=== PATIENT | male | born 1995 | race Caucasian/White ===

== ENCOUNTER → 2020-11-06 | Outpatient (CLI) | payer OTHER ==
--- NOTE | 2020-11-07 14:33 | MR ---
EXAMINATION TYPE: MR femur/thigh LT wo con DATE OF EXAM: 11/06/2020 COMPARISON: None HISTORY: Left thigh rupture of muscle Standard multiplanar, multisequence MRI departmental protocol Multiplanar, multisequence images of the left thigh were acquired. Diffusion weighted imaging was per formed. FINDINGS: Muscular structures appear to be symmetric without evidence for edema. There is no evidence for intra muscular tear. No evidence for hematoma. No muscular rupture. No masses are identified of the soft ti ssues. Osseous structures demonstrate normal bone marrow signal without evidence for fracture or intr aosseous lesion. IMPRESSION: Unremarkable MRI of the left thigh.
== END | disposition home or self-care (01) ==
LOC: RADMRIMAIN 10:34
PROVIDERS: ATTEND Internal Medicine
DX: M62.152 Other rupture of muscle (nontraumatic), left thigh (principal)

== ENCOUNTER → 2020-12-18 | Outpatient (CLI) | payer OTHER ==
--- NOTE | 2020-12-18 11:50 | XR ---
EXAMINATION TYPE: XR lumbar spine 2 or 3V DATE OF EXAM: 12/18/2020 CLINICAL HISTORY: Back pain for one year. TECHNIQUE: Frontal and lateral images of the lumbar spine are obtained. COMPARISON: None FINDINGS: There are 5 lumbar type vertebral bodies identified. The lumbar spine shows satisfactory alignment without evidence of acute fracture or dislocation. Mild to moderate disc space L5-S1 level of the right vertebral body heights and disk space heights are within normal limits. The overlying soft tissue appears unremarkable. IMPRESSION: As above.
--- NOTE | 2020-12-18 11:54 | XR ---
EXAMINATION TYPE: XR thoracic spine complete DATE OF EXAM: 12/18/2020 CLINICAL HISTORY: Mid back pain. TECHNIQUE: Frontal, lateral, and swimmer's view of thoracic spine are obtained. COMPARISON: None. FINDINGS: Thoracic spine show satisfactory alignment without evidence of acute fracture or dislocatio n. Vertebral body heights and disc space heights are preserved. Visualized ribs and pedicles are int act bilaterally.. IMPRESSION: Unremarkable study.
== END ==
LOC: RADXRMAIN 10:58
PROVIDERS: ATTEND Internal Medicine
DX: M54.9 Dorsalgia, unspecified (principal)
CPT/HCPCS: 72072; 72100

== ENCOUNTER → 2021-01-18 | Outpatient (CLI) | payer OTHER ==
--- NOTE | 2021-01-19 05:37 | MR ---
EXAMINATION TYPE: MR lumbar spine wo con DATE OF EXAM: 01/18/2021 COMPARISON: None HISTORY: LBP, LLE radiculopathy x 1 year. Multiplanar multiecho imaging of the lumbar spine was performed with no contrast. There is large posterior L5-S1 disc herniation posteriorly on the left side. There is significant imp ingement on the lateral recess and lumbar nerve root. There is narrowing of the left side L5-S1 neura l foramen. There is no lumbar paraspinal mass. Sacroiliac joints are intact. There is no compression fracture. T here is slight decreased signal in the L5-S1 disc. The other discs appear normal. There is no evidenc e of focal bone destruction. IMPRESSION: Large posterior L5-S1 disc herniation on the left side which is probably clinically significant in th is patient with left side pain. Disc herniation measures 16 x 10 mm on the sagittal images.
== END | disposition home or self-care (01) ==
LOC: RADMRIMAIN 16:11
PROVIDERS: ATTEND Psychiatry & Neurology Neurology
DX: M51.17 Intervertebral disc disorders with radiculopathy, lumbosacral region (principal)
CPT/HCPCS: 72148

== ENCOUNTER → 2021-03-19 | Outpatient (CLI) | payer OTHER ==
--- NOTE | 2021-03-19 13:03 | XR ---
EXAMINATION TYPE: XR chest 2V DATE OF EXAM: 03/19/2021 COMPARISON: NONE HISTORY: Presurgical study. TECHNIQUE: Frontal and lateral views of the chest are obtained. FINDINGS: There is no focal air space opacity, pleural effusion, or pneumothorax seen. The cardiac silhouette size is within normal limits. The osseous structures are intact. IMPRESSION: No acute cardiopulmonary process.
[2021-03-19 15:08] LABS: Appearance,Urine Clear (Clear); Bilirubin,Urine Negative (Negative); Blood,Urine Negative (Negative); Color,Urine Colorless; Glucose,Urine (UA) Negative (Negative); HCT 48.4 % (39.0-53.0); HGB 16.1 gm/dL (13.0-17.5); Ketones,Urine Negative (Negative); Leukocyte Esterase,Urine Negative (Negative); MCH 30.7 pg (25.0-35.0); MCHC 33.3 g/dL (31.0-37.0); MCV 92.3 fL (80.0-100.0); Mean Platelet Volume 7.2; Nitrite,Urine Negative (Negative); Platelet Count 342 k/uL (150-450); Protein,Urine Negative (Negative); RBC 5.24 m/uL (4.30-5.90); RDW 12.8 % (11.5-15.5); Urobilinogen,Urine <0.2 mg/dL (<2.0); WBC 12.7 k/uL (3.8-10.6)
[2021-03-19 15:19] LABS: African American GFR (CKD) >90 (>60 ml/min/1.73 sqM); Anion Gap 8 mmol/L; Blood Urea Nitrogen 15 mg/dL (9-20); Calcium 10.3 mg/dL (8.4-10.2); Carbon Dioxide 27 mmol/L (22-30); Chloride 103 mmol/L (98-107); Glucose 112 mg/dL (74-99); Non-African American GFR(CKD) >90 (>60 ml/min/1.73 sqM); Potassium 4.8 mmol/L (3.5-5.1); Sodium 138 mmol/L (137-145)
[2021-03-19 15:22] LABS: INR 0.9 (<1.2); Partial Thromboplastin Time 24.4 sec (22.0-30.0); Prothrombin Time 9.9 sec (9.0-12.0)
== END | disposition home or self-care (01) ==
LOC: RADXRMAIN 12:42
PROVIDERS: ATTEND Orthopaedic Surgery Orthopaedic Surgery of the Spine
DX: Z01.818 Encounter for other preprocedural examination (principal); M51.27 Other intervertebral disc displacement, lumbosacral region
CPT/HCPCS: 71046; 80048; 81003; 85027; 85610; 85730; 93005

== ENCOUNTER 2021-04-02 06:22 | Day surgery (SDC) | payer OTHER ==
[2021-03-29 14:58] VITALS: BMI 30.5
[2021-04-02] MEDS ORDERED: ONDANSETRON 4 MG/2 ML VIAL ONE (06:54)
[2021-04-02] MEDS ORDERED: LIDOCAINE 1% (10MG/ML) FOR IV START INTRADERMA ONE (07:00)
[2021-04-02] MEDS ORDERED: LACTATED RINGERS 1,000 ML IV ONE (07:01)
[2021-04-02 07:02] VITALS: TEMP 97.7
[2021-04-02 07:04] LABS: Glucose,Whole Blood 103 mg/dL (75-99)
[2021-04-02] MEDS: ONDANSETRON 4 MG/2 ML VIAL IVP ONE ×2 (07:10→10:05)
[2021-04-02] MEDS ORDERED: KETAMINE 10 MG/ML 20 ML VIAL ONE (07:25)
[2021-04-02] MEDS ORDERED: ROCURONIUM 10 MG/ML (5 ML VIAL) IV ONE (07:25)
[2021-04-02] MEDS ORDERED: SUCCINYLCHOLINE CHLORIDE 100 MG/5 ML SYR IV ONE (07:25)
[2021-04-02] MEDS ORDERED: fentaNYL (PF) 50 MCG/ML 2 ML AMP ONE (07:25)
[2021-04-02] MEDS ORDERED: MIDAZOLAM 2 MG/2 ML VIAL ONE (07:25)
[2021-04-02] MEDS ORDERED: PROPOFOL 10 MG/ML 20 ML VIAL IV ONE (07:25)
[2021-04-02] MEDS ORDERED: LIDOCAINE 1% INJ 10MG/ML (20 ML MDV) ONE (07:25)
[2021-04-02] MEDS ORDERED: LIDOCAINE 0.5%-EPI 1:200,000 50 ML VIAL SQ ONE (07:30)
[2021-04-02] MEDS ORDERED: THROMBIN (BOVINE) 5,000 UNIT VIAL TOPICAL ONE (07:30)
[2021-04-02] MEDS ORDERED: methylPREDNISolone ACETATE 40 MG/ML 1 ML VIAL MISCELLANE ONE (07:30)
[2021-04-02] MEDS ORDERED: GELATIN SPONGE,ABSORB (LARGE) 1 EACH SPONGE TOPICAL ONE (07:30)
[2021-04-02] MEDS ORDERED: ceFAZolin 1,000 MG in SODIUM CHLORIDE 0.9% 1,000 ML IRRIGATION ONE (08:03)
[2021-04-02] MEDS ORDERED: HYDROcodone/APAP 5-325MG 1 EACH TAB PO PRN (09:11)
[2021-04-02] MEDS ORDERED: HYDROmorphone 0.5 MG/0.5 ML SYRINGE IVP PRN (09:11)
[2021-04-02] MEDS ORDERED: HYDROmorphone 1 MG/ML 1 ML SYRINGE IVP PRN (09:11)
[2021-04-02] MEDS ORDERED: BENZOCAINE/MENTHOL LOZENG 1 EACH LOZENGE MUCOUS MEM PRN (09:11)
[2021-04-02] MEDS ORDERED: KETOROLAC 15 MG/ML 1 ML VIAL IVP PRN (09:12)
[2021-04-02] MEDS ORDERED: ONDANSETRON 4 MG/2 ML VIAL IVP PRN (09:12)
[2021-04-02] MEDS ORDERED: CYCLOBENZAPRINE 10 MG TAB PO PRN (09:12)
[2021-04-02] MEDS ORDERED: IBUPROFEN 600 MG TAB PO PRN (09:12)
[2021-04-02] MEDS ORDERED: SODIUM CHLORIDE 0.9% 1,000 ML IV SCH (09:15)
--- NOTE | 2021-04-02 09:18 | P.OP ---
Date of Procedure: 04/02/21 Preoperative Diagnosis: Herniated nucleus pulposis L5-S1, left lower extremity radiculopathy, left lower extremity weakness, degenerative disc disease Postoperative Diagnosis: Same Anesthesia: GETA Pathology: none sent Condition: stable Disposition: PACU Description of Procedure: BRIEF OPERATIVE NOTE Preoperative Diagnosis:Herniated nucleus pulposis L5-S1, left lower extremity radiculopathy, left lower extremity weakness, degenerative disc disease Postoperative Diagnosis:Herniated nucleus pulposis L5-S1, left lower extremity radiculopathy, left lower extremity weakness, degenerative disc disease Procedure: Laminectomy and decompression L5-S1 Discectomy for decompression L5-S1 Use of intraoperative fluoroscopy Surgeon: Dr. Lord Bonderizer Operator: Vargas ORONA Anesthesia: General anesthesia per Dr. Rubio Estimated blood loss: Less than 20 mL Complications: None apparent Components implanted: None Disposition: To recovery room in good stable condition. OPERATIVE INDICATIONS The patient has been having issues in their lower back and lower extremities. He had acute symptoms after trying to move a futon and has been having severe pain at his back and particularly at his left lower extremity over an S1 distribution. He was having some weakness at his lower extremity and has having significant debility due to this. He is found have a large disc herniation with extruded fragment L5-S1 with correlated well with his low back and lower extremity symptoms. The patient has been through conservative treatment. He acosta s exhausted conservative Management. We discussed various treatment options including surgery, and the patient wishes to proceed with surgery We discussed the risk, patient's alternatives and benefits of surgery including but not limited to, risk of bleeding risk of infection, risk of need for further surgery, risk of decreased, loss of motion, loss of function, nerve damage, paralysis, heart attack, blindness and . OPERATIVE SUMMARY After discussing all the risks, patient alternatives and benefits at length, the patient elected to proceed with surgical intervention, signed informed consent, and presented for their procedure. The patient was seen and examined in the preoperative holding area and the surgical site was marked. The patient was given antibiotics and brought to the operating room. The patient was sedated and intubated by anesthesia in standard fashion. The patient was positioned on to the operating room table in a prone position on the appropriate frame which was well-padded and well molded. We were careful to pad any bony prominences and pressure points. We were careful to maintain the patient's cervical spine and good neutral alignment and position throughout. The patient was prepped and draped in a normal standard fashion. An appropriate timeout and keystone protocol performed. We were able to proceed with the surgery. Fluoroscopy was utilized to establish the appropriate level. The local wound area was infiltrated with local anesthetic. An incision was made at the midline longitudinally over the appropriate levels. Dissection was taken down subcutaneously to the level of the fascia which was split midline. Dissection was taken over the lamina. Intraoperative fluoroscopy was taken which showed a marker at the appropriate level at L5-S1. With the appropriate level positively confirmed, we were able to proceed with laminectomy. The wound was copiously irrigated and suctioned dry as had been done periodically throughout the case. I performed a laminectomy at L5-S1 on the left with a combination of curettes and a high-speed bur and Kerrison rongeurs. A small medial facetectomy was performed again further access. A partial foraminotomy was also performed. Portions of the ligamentum flavum were taken down to expose the dura and traversing nerve root. I was able to mobilize the traversing nerve root and gain access to the disc space. Note was made of obvious compression from the disc. Protecting the soft tissue structures, a small annulotomy was established. There is large extruded disc fragments noted. I was able to perform discectomy and remove any extruded disc fragments and any loose fragments from within the disc itself. There is some disc desiccation noted. I tried to preserve the disc annulus that appeared stable. The discectomy gave excellent decompression of the nerve and the nerve was freely mobile. There were no further extruded fragments noted. There is no evidence of dural tear or leak. Good hemostasis maintained. The wound was copiously irrigated and suctioned dry. Good decompression and discectomy was noted. We were able to proceed with closure. The fascia was closed for a watertight closure. The subcuticular tissue was closed with absorbable suture. The wound was cleaned and dried and dressed with the appropriate dressing. The drapes were broken down. The patient was gently rolled back onto their hospital bed being careful to maintain their cervical spine and good neutral alignment and position. They were woken up by anesthesia, extubated, and brought to the recovery room in good stable condition. The patient will be admitted to the hospital for observation and for appropriate postoperative care, medical management and monitoring. We will continue to follow them closely about the postoperative course.
[2021-04-02] MEDS: HYDROmorphone 0.5 MG/0.5 ML SYRINGE IVP ONE ×4 (09:37→10:12)
[2021-04-02 10:35] VITALS: RESP 20
[2021-04-02 11:02] VITALS: BP 136/70; PULSE 63
--- NOTE | 2021-04-02 20:40 | XR ---
EXAMINATION TYPE: XR lumbar spine 2 or 3V, FL guidance operating room DATE OF EXAM: 04/02/2021 Comparison: 12/18/2020 Clinical History: 25-year-old male [employer] Findings: Intraoperative fluoroscopy during L5-S1 laminectomy and discectomy. FLUOROSCOPY Fluoroscopy time of 1 seconds was used during lumbar L5-S1 laminectomy and discectomy. 1 image/s doc ument/s the procedure. Impression: Intraoperative fluoroscopy as above.
== END 2021-04-02 11:26 | disposition home or self-care (01) ==
LOC: OR 06:22 → 5NMEDONC 09:15 → OR 11:26
PROVIDERS: ATTEND Orthopaedic Surgery Orthopaedic Surgery of the Spine
DX: M51.17 Intervertebral disc disorders with radiculopathy, lumbosacral region (principal); M54.5 Low back pain; F17.210 Nicotine dependence, cigarettes, uncomplicated; Z79.899 Other long term (current) drug therapy; K21.9 Gastro-esophageal reflux disease without esophagitis
CPT/HCPCS: 72100; 63047; J2250; J1030; J0690 ×2; J2405; J2001; J3010; J1885; J0330; J2704; J1170

== ENCOUNTER 2021-06-18 13:50 | Emergency (ER) | payer OTHER ==
[2021-06-18 14:01] VITALS: BP 143/68; PULSE 91; RESP 18; TEMP 98.1
[2021-06-18] MEDS ORDERED: IBUPROFEN 600 MG TAB PO STA (15:10)
--- NOTE | 2021-06-18 16:00 | XR ---
EXAMINATION TYPE: XR lumbar spine 2 or 3V DATE OF EXAM: 06/18/2021 CLINICAL HISTORY: pain TECHNIQUE: Three views of the lumbar spine are submitted. COMPARISON: None. FINDINGS: There are 5 lumbar type vertebral bodies identified. The lumbar spine shows satisfactory alignment w ithout evidence of acute fracture or dislocation. Vertebral body heights are within normal limits. Disc spaces are within normal limits. The overlying soft tissue appears unremarkable. IMPRESSION: No acute fracture or dislocation is seen in the lumbar spine. ICD 10 NO FRACTURE, INITIAL EVALUATION
[2021-06-18] MEDS ORDERED: ACET/COD 300 MG/30 MG STARTER PACK 6 TAB BTL PO STA (16:43)
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
== END 2021-06-18 16:59 | disposition home or self-care (01) ==
LOC: EC 13:50
DX: M54.5 Low back pain (principal); F90.9 Attention-deficit hyperactivity disorder, unspecified type
CPT/HCPCS: 72100; 99283

== ENCOUNTER → 2022-01-02 | Outpatient (CLI) | payer OTHER ==
[2022-01-02 14:15] VITALS: BP 117/77; PULSE 84; RESP 18; TEMP 98
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
== END ==
LOC: PNWHC3 12:51
PROVIDERS: ATTEND Specialist
DX: M51.26 Other intervertebral disc displacement, lumbar region (principal); M41.86 Other forms of scoliosis, lumbar region; M48.061 Spinal stenosis, lumbar region without neurogenic claudication; G95.29 Other cord compression; F17.200 Nicotine dependence, unspecified, uncomplicated
CPT/HCPCS: 99211

== ENCOUNTER → 2022-03-11 | Outpatient (CLI) | payer OTHER ==
[2022-03-11 10:57] VITALS: BP 129/71; PULSE 59; RESP 18; TEMP 97.7
--- NOTE | 2022-03-11 11:16 | P.PN ---
Subjective Progress Note Date: 03/11/22 Principal diagnosis: A 26 yr old male with a history of severe and chronic low back pain secondary to lumbar degenerative disc diseases and lumbar spondylosis with facet arthropathy presents today for evaluation s/p L TFESI L5-S1 #2. He states he experienced 70% pain relief s/p procedures. Pain level is currently at 3/10 in intensity, constant, sharp, throbbing and irritating pain in the lower aspect of his lumbar spine, mostly on the R side but some on the L. Denies radiation of pain towards the LEs. Pain is provoked by walking, bending and lifting. Pain is alleviated with heat, topicals but irritated his skin, medications (muscle relaxer), laying supine, home based guided exercise regimen, no pt as he has not been approved yet, repositioning and rest Interventional pain procedures completed include L TFESI L5-S1 x2 Patient is currently on "muscle relaxer" Patient denies any side effects of the medication(s), denies excessive drowsiness or sleepiness, denies suicidal ideation and reports that the current pain medication is helping to control the pain and improve activities of daily living. Patient denies any motor or sensory deficits. Patient denies any fever or night sweats, denies any change in the bowel movements or urination. Physical Examination: -Constitutional: Cooperative. Not in acute distress . -HEENT: Neck is supple. No lymphadenopathy. No thyromegaly. Normal thyroid size. Eyes: No ptosis , no icterus, no photophobia. ENT: No auditory deficits. Normal oropharynx. No Thrush. - Respiratory: Chest clear to auscultations bilaterally. No wheezing. No rhonchi. - Cardiovascular: Regular rate and rhythm. S1 / S2 , no S3 , no S4. - Gastrointestinal: Abdomen soft no tenderness. Bowel sounds positive in all four quadrants. No organomegaly. - Genitourinary: Deferred. - Neurologic: Cranial nerve II to XII intact. No focal neurological deficits. - Psychatric: Alert & oriented x 3. Matching mood & appropriate affect. Judgment and insight intact. - Lymphatic: No Lymphadenopathy. - Musculoskeletal: Cervical spine: Muscle bulk/ tone/ strength in the bilateral upper extremities normal Vertebral body tenderness to palpation over Facet loading test positive Thoracic spine Muscle bulk / tone/ strength in the bilateral paraspinal muscles normal Vertebral body tender to palpation over Facet loading test positive Lumbar spine: Motor bulk/ tone/ strength lower extremities , thigh and legs : 5/5 Deep tendon reflexes : Normal Knee Jerk. Normal Ankle Jerk . Vertebral body tenderness to palpation over L5 Lumbar Facet Loading Test positive Straight Leg Raise: positive at 30 degrees right side/ left side Gaenslen's Test positive Sacral spine : Severe tenderness over the Sacroiliac joint: right side / left side Range of motion: Flexion of the lumbar spine <60 degrees Range of motion: Extension of the lumbar spine <20 degrees Gaenslen's Test positive Mani's Test positive Baylee test: positive right side / left side Thigh Thrust Test Sacral Thrust Test Assessment and plan: Chronic low back pain secondary to lumbar degenerative disc disease , lumbar spondylosis with facet arthropathy without myelopathy Recommendation of LESI L5-S1. Pt has exhibited sufficient pain relief with L TFESI L5-S1 x 2 but continues to feel intractable pain that is limiting. He appears to need the series of 3 to obtain optimal pain relief. Risks, benefits of procedure discussed and pt verbalized understanding. Denies anticoagulant use or medical history of diabetes. All patient questions answered MAPS reviewed and it was appropriate. I have spent 31 minutes on patient care today. Dr Gutiérrez was available by phone for the evaluation of this patient. The time was used to review the medical records including relevant urine studies and Prescription history (MAPs), review of the available imaging, evaluation and examination of the patient, coordination of care with the medical staff and if applicable referring physicians, as well as creation of the medical record Objective - Vital Signs Vital signs: Vital Signs Temp 97.7 F 03/11/22 10:48 Pulse 59 L 03/11/22 10:48 Resp 18 03/11/22 10:48 BP 129/71 03/11/22 10:48 Pulse Ox 96 03/11/22 10:48 FiO2 Intake & Output 03/10/22 03/11/22 03/11/22 18:59 06:59 18:59 Weight 99.79 kg PQRS Measure Charge Sheet Mode of Arrival: Ambulatory - Pain Location Right Lower Back Non-Pharmacological Interventions: Exercise, Heat, Inactivity, Stretching Pharmacological Interventions: Epidural, Scheduled Medication, Topical Medication PQRS Narrative: Smoking Status Current every day smoker Blood Pressure 129/71 Pain Intensity [Right Lower 3 Back] Scale Used Numeric (1 - 10) Hx Alcohol Use (MH) No Home Medications: Ambulatory Orders Cyclobenzaprine [Flexeril] 10 mg PO HS PRN 03/29/21 Famotidine [Pepcid] 20 mg PO DAILY PRN 03/29/21 Sertraline [Zoloft] 25 mg PO DAILY 12/31/21 Vitamin D (Unknown Dose) 1 tab PO DAILY 12/31/21 Ibuprofen 200 - 400 mg PO Q8H PRN 02/06/22
== END ==
LOC: PNWHC3 10:28
PROVIDERS: ATTEND Specialist
DX: M51.36 Other intervertebral disc degeneration, lumbar region (principal); M47.816 Spondylosis without myelopathy or radiculopathy, lumbar region; G89.29 Other chronic pain; F17.200 Nicotine dependence, unspecified, uncomplicated
CPT/HCPCS: 99211

== ENCOUNTER 2022-04-04 10:53 | Day surgery (SDC) | payer OTHER ==
[2022-04-02 15:32] VITALS: BMI 30.7
[~2022-04-04 10:53] MED LIST: LACTATED RINGERS 1,000 ML IV SCH; LIDOCAINE 1% (10MG/ML) FOR IV START INTRADERMA PRN
[2022-04-04 11:21] VITALS: TEMP 97.8
[2022-04-04] MEDS ORDERED: IOPAMIDOL M200 10 ML VIAL ONE (11:29)
[2022-04-04] MEDS ORDERED: MIDAZOLAM 2 MG/2 ML VIAL ONE (11:29)
[2022-04-04] MEDS ORDERED: fentaNYL (PF) 50 MCG/ML 2 ML AMP ONE (11:29)
[2022-04-04] MEDS ORDERED: methylPREDNISolone ACETATE 80 MG/ML 1 ML VIAL ONE (11:29)
--- NOTE | 2022-04-04 11:37 | P.PCN ---
Date of Procedure: 04/04/22 Procedure(s) Performed: PREOPERATIVE DIAGNOSIS: 1- Lumbar Degenerative Disc Diseases 2-Lumbar spondylosis with Facet arthropathy without myelopathy POSTOPERATIVE DIAGNOSIS: Same as preop diagnosis. PROCEDURE 1. Lumbar epidural steroid injection under fluoroscopic guidance at the L5-S1 level. (Fluoroscopy imaging was available in radiology department) 2. Lumbar epidurogram. ANESTHESIA: Local with 1% lidocaine 3 ml and , moderate sedation with intravenous Versed 2 mg ,and fentanyle 100 Mcg EBL: Minimal PROCEDURE INDICATION: The patient with low back pain and radiculitis symptoms unresponsive to conservative treatment. Fluoroscopy was used to optimize visuali zation of the needle placement and to maximize safety. PROCEDURE DESCRIPTION / TECHNIQUE: The patient was seen and identified in the preoperative area. Risks, benefits, complications including but not limited to infections ,bleeding ,allergic reaction to the medications ,nerve damage and not complete pain releife , and alternatives were discussed with the patient. The patient agreed to proceed with the procedure and signed the consent. IV was started, and vital signs were stable. Patient was taken to the OR and time out was completed. The patient was placed in the prone position on procedure table and a pillow was placed under the abdomen to reduce lumbar lordosis. The lumbosacral area was prepped and draped in the usual sterile fashion.ere closely monitored during the procedure. Conscious sedation was used during the procedure to decrease patients anxiety. Vital signs was monitered during the entire procedure. Using anterior-posterior fluoroscopy, the L5-S1 interlaminar space was identified and the skin over this site was marked and then infiltrated with 1% lidocaine subcutaneously. Subsequently, a 20-gauge Tuohy epidural needle was inserted and advanced toward the epidural space using the ``Loss of resistance technique and guided by AP and lateral fluoroscopy. The correct needle position in the epidural space was verified with the injection of 2 mL of the water mell uble contrast dye Isovue [id number] contrast and observing an excellent epidurogram with the epidural spread of the dye, after negative aspiration for blood and CSF and in the absence of paresthesias. Again after negative aspiration, a 6 ml mixture containing 80 mg of Depo-medrol , and 2 ml of preservative free Normal Saline, and 2 ml of preservative free lidocaine 1% solution was injected and a washout of epidurogram was seen. Needle was withdrawn intact, skin was cleansed, and bandages were applied. COMPLICATIONS: None DISPOSITION / PLANS: The patient was placed in a supine position and transferred to the recovery area in a stable condition for observation. There was no evidence of lower extremity motor or sensory deficit after the procedure. Patient was discharged from the recovery room after meeting discharge criteria. Home discharge instructions were given to the patient by the staff. The patient was reexamined prior to discharge. The patient will schedule a follow up in the clinic in 2-4 weeks.
[2022-04-04] MEDS ORDERED: IV FLUID CONTINUATION 1,000 ML IV ONE (11:42)
[2022-04-04 11:49] VITALS: PULSE 55; RESP 15
[2022-04-04 12:14] VITALS: BP 122/74
--- NOTE | 2022-04-05 22:11 | FL ---
EXAMINATION TYPE: FL guided pain mgmt statistic DATE OF EXAM: 04/04/2022 CLINICAL HISTORY: Lumbar epidural injection TECHNIQUE: Fluoroscopic guided procedure. COMPARISON: X-ray dated 06/18/2021 FINDINGS: Fluoroscopic guidance was provided during the procedure. A total of 3 seconds of fluorosco pic time was utilized during the procedure and 1 spot image was acquired. IMPRESSION: As Above.
== END 2022-04-04 12:34 | disposition home or self-care (01) ==
LOC: ORPAIN 10:53
PROVIDERS: ATTEND Specialist
DX: M51.16 Intervertebral disc disorders with radiculopathy, lumbar region (principal); M47.26 Other spondylosis with radiculopathy, lumbar region
CPT/HCPCS: 62323; J2250; J1040; J3010; Q9966

== ENCOUNTER → 2022-04-25 | Outpatient (CLI) | payer OTHER ==
--- NOTE | 2022-04-25 12:37 | P.PAINPG ---
PQRS Measure Charge Sheet Comment: A 27 yr old male with a history of severe and chronic low back pain secondary to lumbar degenerative disc diseases and lumbar spondylosis with facet arthropathy presents today for evaluation. He states he experienced 80% pain relief x 3-4 weeks status post procedure. Pain level is currently at 1/10 in intensity, constant, pressure in the R lower aspect in the lumbar spine with shooting towards the R glute. Pain is provoked by sitting for periods of 30 min or more. Pain is alleviated with medications, home stretching regimen, repositioning and rest. Interventional pain procedures completed include LESI L5-S1 x 1 Patient is currently on OTC meds Patient denies any side effects of the medication(s), denies excessive drowsiness or sleepiness, denies suicidal ideation and reports that the current pain medication is helping to control the pain and improve activities of daily living. Patient denies any motor or sensory deficits. Patient denies any fever or night sweats, denies any change in the bowel movements or urination. Physical Examination: -Constitutional: Cooperative. Not in acute distress . - Neurologic: Cranial nerve II to XII intact. No focal neurological deficits. - Psychatric: Alert & oriented x 3. Matching mood & appropriate affect. Judgment and insight intact. - Musculoskeletal: Cervical spine: Muscle bulk/ tone/ strength in the bilateral upper extremities normal Vertebral body tenderness to palpation over Spurling test positive Distraction test positive Facet loading test positive Thoracic spine Muscle bulk / tone/ strength in the bilateral paraspinal muscles normal Vertebral body tender to palpation over Facet loading test positive Lumbar spine: Motor bulk/ tone/ strength lower extremities , thigh and legs : 5/5 Deep tendon reflexes : Normal Knee Jerk. Normal Ankle Jerk . Vertebral body tenderness to palpation over Lumbar Facet Loading Test positive Straight Leg Raise: positive at 30 degrees right side/ left side Gaenslen's Test positive Sacral spine : Severe tenderness over the Sacroiliac joint: right side / left side Range of motion: Flexion of the lumbar spine <60 degrees Range of motion: Extension of the lumbar spine <20 degrees Gaenslen's Test positive on R Baylee test: positive right side / left side +R Thigh Thrust Test Sacral Thrust Test - R side Assessment and plan: Chronic low back pain secondary to lumbar degenerative disc disease , R Sacroiliitis Recommendation of R SI joint injection. May need a series, up to every 3 mo, for optimal pain relief. Risks, benefits of procedure discussed and pt verbalized understanding. Denies anticoagulant use or medical history of diabe estelle. All patient questions answered MAPS reviewed and it was appropriate. I have spent less than 30 minutes on patient care today. Dr Gutiérrez was available by phone for the evaluation of this patient. The time was used to review the medical records including relevant urine studies and Prescription history (MAPs), review of the available imaging, evaluation and examination of the patient, coordination of care with the medical staff and if applicable referring physicians, as well as creation of the medical record PQRS Narrative: Smoking Status Current every day smoker Hx Alcohol Use (MH) No Home Medications: Ambulatory Orders Cyclobenzaprine [Flexeril] 10 mg PO HS PRN 03/29/21 Vitamin D (Unknown Dose) 1 tab PO DAILY 12/31/21 Ibuprofen 200 - 400 mg PO Q8H PRN 02/06/22 Sertraline [Zoloft] 50 mg PO DAILY 04/02/22 Controlled Substance Measures - Controlled Substance Measures Is patient prescribed a controlled substance at discharge?: No
[2022-04-25 12:46] VITALS: BP 145/75; PULSE 74; RESP 16; TEMP 98.1
== END ==
LOC: PNWHC3 12:17
PROVIDERS: ATTEND Specialist
DX: M51.36 Other intervertebral disc degeneration, lumbar region (principal); M47.816 Spondylosis without myelopathy or radiculopathy, lumbar region; G89.29 Other chronic pain; M46.1 Sacroiliitis, not elsewhere classified; F17.200 Nicotine dependence, unspecified, uncomplicated
CPT/HCPCS: 99211

== ENCOUNTER 2022-06-06 12:06 | Day surgery (SDC) | payer OTHER ==
[2022-06-06 12:38] VITALS: TEMP 98
[2022-06-06] MEDS ORDERED: TRIAMCINOLONE ACETONIDE 40 MG/ML 1 ML VIAL ONE (12:53)
[2022-06-06] MEDS ORDERED: MIDAZOLAM 2 MG/2 ML VIAL ONE (12:53)
[2022-06-06] MEDS ORDERED: IOPAMIDOL M200 10 ML VIAL ONE (12:53)
[2022-06-06] MEDS ORDERED: fentaNYL (PF) 50 MCG/ML 2 ML AMP ONE (12:53)
[2022-06-06] MEDS ORDERED: LACTATED RINGERS 1,000 ML IV SCH (13:00)
--- NOTE | 2022-06-06 13:01 | P.PCN ---
Date of Procedure: 06/06/22 Description of Procedure: PREOPERATIVE DIAGNOSIS: Sacroiliac joint dysfunction POSTOPERATIVE DIAGNOSIS: Sacroiliac joint dysfunction. PROCEDURES: 1. Right-sided Sacroiliac joint steroid injection #2 out of 2 2. Sacroiliac joint arthrogram. SURGEON: Roxanna August ANESTHESIA: Local and IV sedation : 2 MG of Versed, and fentanyl 100 g. Sedation supervision start time : 1253 sedation Supervision end time: 1258 EBL: None. Specimen removed: None Fluoroscopic image: saved to electronic medical records. PROCEDURE INDICATIONS: This patient with a history of chronic low back pain, and sacroiliac joint dysfunction. Patient tried conservative therapy. Came here for intervention management. PROCEDURE DESCRIPTION: The patient was seen and identified in the preoperative area. Risks, benefits, complications, and alternatives were discussed with the patient. The patient agreed to proceed with the procedure and signed the consent. IV was started, and vital signs were stable. Patient was taken to the OR and time out was completed. The patient was placed in the prone position on procedure table and a pillow was placed under the abdomen to reduce lumbar lordosis. The lumbosacral area was prepped and draped in the usual sterile fashion. Critical pause was taken. Vital signs were closely monitored during the procedure. For the right side, the fluoroscopic camera was placed in left oblique view and right SI joint lower pole was identified. Skin entry point was infiltrated with 1% lidocaine and 22-gauge 3.5 inch spinal needle was introduced into the inferior one-third of SI joint and after penetrating into the joint arthrogram was done. 0.5 ml of [id number] contrast was injected after negative aspiration for blood, and air and negative for paresthesia. Good spread of the contrast into the SI joint has been seen. Then again after negative aspiration of spinal fluid and blood and negative for neurological symptoms, 3 mL of a solution containing total 2 mL of 1% preservative-free lidocaine mixed with 40 mg of Kenalog was injected. Needle was withdrawn intact. Needle was withdrawn intact. Skin was cleansed, and bandages were applied. COMPLICATIONS: None. DISPOSITION / PLANS: The patient was placed in a supine position and transferred to the recovery area in a stable condition for observation and was discharged from the recovery room after meeting discharge criteria. Home discharge instructions given to the patient by the staff. The patient was reexamined prior to discharge. The patient will schedule for follow-up visit with the pain clinic in 4 weeks duration.
[2022-06-06] MEDS ORDERED: IV FLUID CONTINUATION 800 ML IV ONE (13:03)
[2022-06-06 13:07] VITALS: RESP 16
--- NOTE | 2022-06-06 13:14 | FL ---
Intraoperative/procedural fluoroscopic services were provided for SI joint injection. Total fluorosco py time is 2 seconds minutes with a total of 1 submitted image to PACS. Please see the operative note for further details.
[2022-06-06 13:23] VITALS: BP 111/65; PULSE 74
== END 2022-06-06 13:40 | disposition home or self-care (01) ==
LOC: ORPAIN 12:06
DX: M53.3 Sacrococcygeal disorders, not elsewhere classified (principal); M54.50 Low back pain, unspecified; G89.29 Other chronic pain
CPT/HCPCS: 27096; J2250; J3301; J3010; Q9966

== ENCOUNTER → 2022-07-11 | Outpatient (CLI) | payer OTHER ==
[2022-07-11 11:49] VITALS: BP 130/75; PULSE 80; RESP 18; TEMP 98.3
--- NOTE | 2022-07-11 14:50 | P.PAINPG ---
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 Pt states she experienced 95% pain relief x 5 wks s/p procedure. Pain level is currently at 4/10 in intensity, constant, localized on the L tailbone/glute, stabbing in character w shooting towards LLE. Pain is provoked as high as 7/10 by lifting. Pain is alleviated with PT last in Nov 2021 but would like to restart PT, massage gun use at home by his , hot showers, meds (Ibuprofen), +cannabis, laying supine, repositioning and rest. Interventional pain procedures completed include R SI x2, ABBY L5-S1 Patient is currently on Ibuprofen Patient denies any side effects of the medication(s), denies excessive drowsines s or sleepiness, denies suicidal ideation and reports that the current pain medication is helping to control the pain and improve activities of daily living. Patient denies any motor or sensory deficits. Patient denies any fever or night sweats, denies any change in the bowel movements or urination. Physical Examination: -Constitutional: Cooperative. Not in acute distress . - Neurologic: Cranial nerve II to XII intact. No focal neurological deficits. - Psychatric: Alert & oriented x 3. Matching mood & appropriate affect. Judgment and insight intact. - Musculoskeletal: Cervical spine: Muscle bulk/ tone/ strength in the bilateral upper extremities normal Vertebral body tenderness to palpation over Spurling test positive Distraction test positive Facet loading test positive Thoracic spine Muscle bulk / tone/ strength in the bilateral paraspinal muscles normal Vertebral body tender to palpation over Facet loading test positive Lumbar spine: Motor bulk/ tone/ strength lower extremities , thigh and legs : 5/5 Deep tendon reflexes : Normal Knee Jerk. Normal Ankle Jerk . Vertebral body tenderness to palpation over Lumbar Facet Loading Test positive Straight Leg Raise: positive at 30 degrees right side/ left side Gaenslen's Test positive Sacral spine : Severe tenderness over the Sacroiliac joint: right side / left side Range of motion: Flexion of the lumbar spine <60 degrees Range of motion: Extension of the lumbar spine <20 degrees L Gaenslen's Test positive Baylee test: positive right side / left side Thigh Thrust Test L Sacral Thrust Test Assessment and plan: Chronic low back pain secondary to lumbar degenerative disc disease , lumbar spondylosis with facet arthropathy without myelopathy Recommendation of L SI injection. May need a series, up to 4 per 12 mo period, for optimal pain relief. Risks, benefits of procedure discussed and pt verbalized understanding. Admits anticoagulant use or medical history of diabetes. Protocol for discontinuation/ continuation of medication morgan procedure discussed. All patient questions answered I have spent less than 30 minutes on patient care today. Dr Gutiérrez was available by phone for the evaluation of this patient. The time was used to review the medical records including relevant urine studies and Prescription history (MAPs), review of the available imaging, evaluation and examination of the patient, coordination of care with the medical staff and if applicable referring physicians, as well as creation of the medical record PQRS Narrative: Smoking Status Current every day smoker Hx Alcohol Use (MH) No Home Medications: Ambulatory Orders Cyclobenzaprine [Flexeril] 10 mg PO HS PRN 03/29/21 Vitamin D (Unknown Dose) 1 tab PO DAILY 12/31/21 Ibuprofen 200 - 400 mg PO Q8H PRN 02/06/22 Sertraline [Zoloft] 50 mg PO DAILY 04/02/22 Controlled Substance Measures - Controlled Substance Measures Is patient prescribed a controlled substance at discharge?: No
== END ==
LOC: PNWHC3 10:23
PROVIDERS: ATTEND Specialist
DX: M51.36 Other intervertebral disc degeneration, lumbar region (principal); M47.816 Spondylosis without myelopathy or radiculopathy, lumbar region; G89.29 Other chronic pain; F17.200 Nicotine dependence, unspecified, uncomplicated
CPT/HCPCS: 99211

== ENCOUNTER 2022-08-15 13:09 | Day surgery (SDC) | payer OTHER ==
[~2022-08-15 13:09] MED LIST changes: -LIDOCAINE 1% (10MG/ML) FOR IV START INTRADERMA PRN
[2022-08-15] MEDS ORDERED: LACTATED RINGERS 1,000 ML IV SCH (13:16)
[2022-08-15] MEDS ORDERED: LIDOCAINE 1% (10MG/ML) FOR IV START INTRADERMA PRN (13:16)
[2022-08-15 13:31] VITALS: TEMP 97
[2022-08-15] MEDS ORDERED: MIDAZOLAM 2 MG/2 ML VIAL ONE (13:43)
[2022-08-15] MEDS ORDERED: fentaNYL (PF) 50 MCG/ML 2 ML AMP ONE (13:43)
[2022-08-15] MEDS ORDERED: TRIAMCINOLONE ACETONIDE 40 MG/ML 1 ML VIAL ONE (13:43)
[2022-08-15] MEDS ORDERED: IOPAMIDOL M200 10 ML VIAL ONE (13:43)
[2022-08-15] MEDS ORDERED: IV FLUID CONTINUATION 1,000 ML IV ONE ×2 (13:52)
--- NOTE | 2022-08-15 13:52 | P.PCN ---
Date of Procedure: 08/15/22 Description of Procedure: PREOPERATIVE DIAGNOSIS: Sacroiliac joint dysfunction POSTOPERATIVE DIAGNOSIS: Sacroiliac joint dysfunction. PROCEDURES: 1. Left-sided Sacroiliac joint steroid injection #2 out of 2 2. Sacroiliac joint arthrogram. SURGEON: Roxanna August ANESTHESIA: Local and IV sedation : Versed 2 mg, and fentanyl 100 g Sedation supervision start time : 1344 sedation Supervision end time: 1348 EBL: None. Specimen removed: None Fluoroscopic image: saved to electronic medical records. PROCEDURE INDICATIONS: This patient with a history of chronic low back pain, and sacroiliac joint dysfunction. Patient tried conservative therapy. Came here for intervention management. PROCEDURE DESCRIPTION: The patient was seen and identified in the preoperative area. Risks, benefits, complications, and alternatives were discussed with the patient. The patient agreed to proceed with the procedure and signed the consent. IV was started, and vital signs were stable. Patient was taken to the OR and time out was completed. The patient was placed in the prone position on procedure table and a pillow was placed under the abdomen to reduce lumbar lordosis. The lumbosacral area was prepped and draped in the usual sterile fashion. Critical pause was taken. Vital signs were closely monitored during the procedure. For the left side, the fluoroscopic camera was placed in right oblique view and left SI joint lower pole was identified. Skin entry point was infiltrated with 1% lidocaine and 22-gauge 3.5 inch spinal needle was introduced into the inferior one-third of SI joint and after penetrating into the joint arthrogram was done. 1 ml of [id number] contrast was injected after negative aspiration for blood, and air and negative for paresthesia. Good spread of the contrast into the SI joint has been seen. Then again after negative aspiration of spinal fluid and blood and negative for neurological symptoms, 3 mL of a solution containing total 2 mL of 1% preservative-free lidocaine mixed with 40 mg of Kenalog was injected. Needle was withdrawn intact. Skin was cleansed, and bandages were applied. COMPLICATIONS: None. DISPOSITION / PLANS: The patient was placed in a supine position and transferred to the recovery area in a stable condition for observation and was discharged from the recovery room after meeting discharge criteria. Home discharge instructions given to the patient by the staff. The patient was reexamined prior to discharge. The patient will schedule for follow-up visit with the pain clinic in 4 weeks duration.
--- NOTE | 2022-08-15 13:58 | FL ---
Intraoperative/procedural fluoroscopic services were provided for left SI joint steroid injection. To mery fluoroscopy time is 2 seconds with a total of 1 submitted image to PACS. Please see the operative note for further details.
[2022-08-15 14:04] VITALS: RESP 16
[2022-08-15 14:13] VITALS: BP 110/68; PULSE 77
== END 2022-08-15 14:22 | disposition home or self-care (01) ==
LOC: ORPAIN 13:09
DX: M53.3 Sacrococcygeal disorders, not elsewhere classified (principal); G89.29 Other chronic pain
CPT/HCPCS: J2250; J3301; J3010; Q9966; G0260; 27096

== ENCOUNTER → 2022-09-05 | Outpatient (CLI) | payer OTHER ==
--- NOTE | 2022-09-05 14:24 | P.PAINPG ---
PQRS Measure Charge Sheet Comment: A 27 yr old male w and children at side with a history of severe and chronic low back pain secondary to lumbar DDD and spondylosis with facet arthropathy without myelopathy presents today for evaluation s/p L SI injection. Pt states he experienced 90% pain relief x 3 wks s/p procedure. Pain level is cu rrently at 2/10 in intensity, constant, L lower lumbosacral spine, dull/ achy in character w shooting towards the L groin. Pain is provoked by sitting/ laying flat for periods of 1 hr or more. Pain is alleviated with PT x 6mo, massage therapy as needed, heat, medications (Tyl, Ibu), reclining and rest. Interventional pain procedures completed include L SI Patient is currently on Tyl, IBu Patient denies any side effects of the medication(s), denies excessive drowsiness or sleepiness, denies suicidal ideation and reports that the current pain medication is helping to control the pain and improve activities of daily living. Patient denies any motor or sensory deficits. Patient denies any fever or night sweats, denies any change in the bowel movements or urination. Physical Examination: -Constitutional: Cooperative. Not in acute distress . - Neurologic: Cranial nerve II to XII intact. No focal neurological deficits. - Psychatric: Alert & oriented x 3. Matching mood & appropriate affect. Judgment and insight intact. - Musculoskeletal: Cervical spine: Muscle bulk/ tone/ strength in the bilateral upper extremities normal Vertebral body tenderness to palpation over Spurling test positive Distraction test positive Facet loading test positive Thoracic spine Muscle bulk / tone/ strength in the bilateral paraspinal muscles normal Vertebral body tender to palpation over Facet loading test positive Lumbar spine: Motor bulk/ tone/ strength lower extremities , thigh and legs : 5/5 Deep tendon reflexes : Normal Knee Jerk. Normal Ankle Jerk . Vertebral body tenderness to palpation over Lumbar Facet Loading Test positive Straight Leg Raise: positive at 30 degrees right side/ left side Gaenslen's Test positive Sacral spine : Severe tenderness over the Sacroiliac joint: right side / left side Range of motion: Flexion of the lumbar spine <60 degrees Range of motion: Extension of the lumbar spine <20 degrees Gaenslen's Test positive on L Baylee test: positive right side / left side Thigh Thrust Test Sacral Thrust Test Assessment and plan: Chronic LBP secondary to lumbar DDD, spondylosis with facet arthropathy without myelopathy, L Sacroiliitis Pt exhibited sufficient and optimal pain relief w procedure. He may manage residual pain at home and will follow up at our clinic within 8 wks for a re evaluation. Risks, benefits of procedure discussed and pt verbalized understanding. Denies anticoagulant use or medical history of diabetes. All patient questions answered I have spent less than 30 minutes on patient care today. Dr Gutiérrez was available by phone for the evaluation of this patient. The time was used to review the medical records including relevant urine studies and Prescription history (MAPs), review of the available imaging, evaluation and examination of the patient, coordination of care with the medical staff and if applicable referring physicians, as well as creation of the medical record PQRS Narrative: Smoking Status Current every day smoker Hx Alcohol Use (MH) No Home Medications: Ambulatory Orders Ibuprofen 200 - 400 mg PO Q8H PRN 02/06/22 Controlled Substance Measures - Controlled Substance Measures Is patient prescribed a controlled substance at discharge?: No
[2022-09-05 14:43] VITALS: BP 110/62; PULSE 72; RESP 16; TEMP 97.9
== END ==
LOC: PNWHC3 12:11
PROVIDERS: ATTEND Specialist
DX: M47.816 Spondylosis without myelopathy or radiculopathy, lumbar region (principal); M51.36 Other intervertebral disc degeneration, lumbar region; G89.29 Other chronic pain; M46.1 Sacroiliitis, not elsewhere classified; F17.200 Nicotine dependence, unspecified, uncomplicated
CPT/HCPCS: 99211

== ENCOUNTER → 2022-11-04 | Outpatient (CLI) | payer OTHER ==
[2022-11-04 14:13] VITALS: BP 113/75; PULSE 87; RESP 18; TEMP 98.3
--- NOTE | 2022-11-04 14:34 | P.PAINPG ---
PQRS Measure Charge Sheet Comment: A 27 yr old male with a history of severe and chronic LBP secondary to lumbar DDD and spondylosis with facet arthropathy without myelopathy, L Sacroiliitis presents today for L lower lumbar pain. Pain level is provoked at 6/10 in intensity, intermittent, localized in the L lower lumbar spine, sharp in daniel acter without shooting pain. Pain is provoked by sitting, bending for periods of 20 min or more. Pain is alleviated with PT x 4 mo in Dec 2021, heat, meds (Ibu, Icy-hot), repositioning, reclining and rest. Interventional pain procedures completed include L SI injection Patient is currently on Ibu, topicals Patient denies any side effects of the medication(s), denies excessive drowsiness or sleepiness, denies suicidal ideation and reports that the current pain medication is helping to control the pain and improve activities of daily living. Patient denies any motor or sensory deficits. Patient denies any fever or night sweats, denies any change in the bowel movements or urination. Physical Examination: -Constitutional: Cooperative. Not in acute distress . - Neurologic: Cranial nerve II to XII intact. No focal neurological deficits. - Psychatric: Alert & oriented x 3. Matching mood & appropriate affect. Judgment and insight intact. - Musculoskeletal: Cervical spine: Muscle bulk/ tone/ strength in the bilateral upper extremities normal Vertebral body tenderness to palpation over Spurling test positive Distraction test positive Facet loading test positive Thoracic spine Muscle bulk / tone/ strength in the bilateral paraspinal muscles normal Vertebral body tender to palpation over Facet loading test positive Lumbar spine: Motor bulk/ tone/ strength lower extremities , thigh and legs : 5/5 Deep tendon reflexes : Normal Knee Jerk. Normal Ankle Jerk . Vertebral body tenderness to palpation over Lumbar Facet Loading Test positive Straight Leg Raise: positive at 30 degrees right side/ left side Gaenslen's Test positive Sacral spine : Severe tenderness over the Sacroiliac joint: right side / left side Range of motion: Flexion of the lumbar spine <60 degrees Range of motion: Extension of the lumbar spine <20 degrees Gaenslen's Test positive on L Baylee test: positive right side / left side L positive Thigh Thrust Test Sacral Thrust Test L positive Assessment and plan: Chronic LBP secondary to lumbar DDD, spondylosis with facet arthropathy without myelopathy, L Sacroiliitis Recommendation of L SI injection. May need a series, up to every 3 mo, for optimal pain relief. Risks, benefits of procedure discussed and pt verbalized understanding. Admits to anticoagulant use or medical history of diabetes. Protocol for discontinuation/ continuation of medications morgan procedure discussed. All patient questions answered I have spent less than 30 minutes on patient care today. Dr Gutiérrez was available by phone for the evaluation of this patient. The time was used to review the medical records including relevant urine studies and Prescription history (MAPs), review of the available imaging, evaluation and examination of the patient, coordination of care with the medical staff and if applicable referring physicians, as well as creation of the medical record PQRS Narrative: Smoking Status Current every day smoker Hx Alcohol Use (MH) No Home Medications: Ambulatory Orders Ibuprofen 200 - 400 mg PO Q8H PRN 02/06/22 Controlled Substance Measures - Controlled Substance Measures Is patient prescribed a controlled substance at discharge?: No
== END ==
LOC: PNWHC3 13:50
PROVIDERS: ATTEND Specialist
DX: M47.816 Spondylosis without myelopathy or radiculopathy, lumbar region (principal); G89.29 Other chronic pain; M51.36 Other intervertebral disc degeneration, lumbar region; F17.200 Nicotine dependence, unspecified, uncomplicated
CPT/HCPCS: 99211

== ENCOUNTER → 2022-12-25 | Outpatient (CLI) | payer OTHER ==
[2022-12-25 14:33] VITALS: BP 121/67; PULSE 77; RESP 18; TEMP 98.2
--- NOTE | 2022-12-25 14:53 | P.PAINPG ---
PQRS Measure Charge Sheet Comment: A 27 yr old male w and child at side with a history of severe and chronic LBP secondary to lumbar DDD and spondylosis with facet arthropathy without myelopathy presents today for evaluation s/p L SI Injection #2. Pt states he experienced 75 % pain relief x 4 wks s/p procedure. Pain level is provoked at 6 /10 in intensity, constant, localized in the R center lumbar spine, sharp in character w/o shooting pain. Pain is provoked by sitting/ standing/ walking for periods of 15 min or more. Pain is alleviated with PT x 6 wks in Dec 2021 which provoked pain, massage integrated w PT, massage gun use at home, heat, hot showers, meds (Ibu), THC products, repositioning, reclining w lumbar pillow and rest. Interventional pain procedures completed include L SI x2, R SI x1, ABBY L5-S1, BL TFESI L5-S1 Patient is currently on Ibu Patient denies any side effects of the medication(s), denies excessive yahir wsiness or sleepiness, denies suicidal ideation and reports that the current pain medication is helping to control the pain and improve activities of daily living. Patient denies any motor or sensory deficits. Patient denies any fever or night sweats, denies any change in the bowel movements or urination. Physical Examination: -Constitutional: Cooperative. Not in acute distress . - Neurologic: Cranial nerve II to XII intact. No focal neurological deficits. - Psychatric: Alert & oriented x 3. Matching mood & appropriate affect. Judgment and insight intact. - Musculoskeletal: Cervical spine: Muscle bulk/ tone/ strength in the bilateral upper extremities normal Vertebral body tenderness to palpation over L5 Spurling test positive Distraction test positive Facet loading test positive TTP Thoracic spine Muscle bulk / tone/ strength in the bilateral paraspinal muscles normal Vertebral body tender to palpation over Facet loading test positive TTP Lumbar spine: Motor bulk/ tone/ strength lower extremities , thigh and legs : 5/5 Deep tendon reflexes : Normal Knee Jerk. Normal Ankle Jerk . Vertebral body tenderness to palpation over Lumbar Facet Loading Test positive Straight Leg Raise: positive at 30 degrees right side/ left side Gaenslen's Test positive Sacral spine : Severe tenderness over the Sacroiliac joint: right side / left side Range of motion: Flexion of the lumbar spine <60 degrees Range of motion: Extension of the lumbar spine <20 degrees Gaenslen's Test positive right side / left side Baylee test: positive right side / left side Thigh Thrust Test positive right side / left side Sacral Thrust Test positive right side / left side Assessment and plan: Chronic LBP secondary to lumbar DDD, spondylosis with facet arthropathy without myelopathy Recommendation of R TFESI L5-S1. May need a series of injections for optimal pain relief. Risks, benefits of procedure discussed and pt verbalized understanding. Admits to anticoagulant use or medical history of diabetes. Protocol for discontinuation/ continuation of medications morgan procedure discussed. All questions answered. I have spent less than 30 minutes on patient care today. Dr Gutiérrez was available by phone for the evaluation of this patient. The time was used to review the medical records including relevant urine studies and Prescription history (MAPs), review of the available imaging, evaluation and examination of the patient, coordination of care with the medical staff and if applicable referring physicians, as well as creation of the medical record PQRS Narrative: Smoking Status Current every day smoker Hx Alcohol Use (MH) No Home Medications: Ambulatory Orders Ibuprofen 200 - 400 mg PO Q8H PRN 02/06/22 Cholecalciferol [Vitamin D3 (125 Mcg = 5000 Iu)] 125 mcg PO DAILY 11/28/22 Sertraline [Zoloft] 50 mg PO DAILY 11/28/22 polyethylene glycoL 3350 [Miralax] 17 gm PO DAILY 11/28/22 Controlled Substance Measures - Controlled Substance Measures Is patient prescribed a controlled substance at discharge?: No
== END ==
LOC: PNWHC3 13:44
PROVIDERS: ATTEND Specialist
DX: M51.36 Other intervertebral disc degeneration, lumbar region (principal); M47.816 Spondylosis without myelopathy or radiculopathy, lumbar region; G89.29 Other chronic pain; F17.200 Nicotine dependence, unspecified, uncomplicated
CPT/HCPCS: 99211

== ENCOUNTER 2023-01-14 12:47 | Day surgery (SDC) | payer OTHER ==
[2023-01-09 12:02] VITALS: BMI 32.8
[2023-01-14 13:02] VITALS: TEMP 98.5
[2023-01-14] MEDS ORDERED: fentaNYL (PF) 50 MCG/ML 2 ML AMP ONE (13:05)
[2023-01-14] MEDS ORDERED: DEXAMETHASONE SOD PHOSPHATE 10 MG/ML 1 ML VIAL ONE (13:05)
[2023-01-14] MEDS ORDERED: IOPAMIDOL M200 10 ML VIAL ONE (13:05)
[2023-01-14] MEDS ORDERED: MIDAZOLAM 2 MG/2 ML VIAL ONE (13:05)
--- NOTE | 2023-01-14 13:19 | P.PCN ---
Date of Procedure: 01/14/23 Procedure(s) Performed: Lumbar transforaminal epidural steroid injection L5-S1 right Description of Procedure: PREOPERATIVE DIAGNOSIS: Lumbar radiculopathy POSTOPERATIVE DIAGNOSIS: Lumbar radiculopathy PROCEDURE 1. Transforaminal epidural steroid injection under fluoroscopic guidance right L5-S1 2. Lumbar epidurogram IMAGING Fluoroscopy was used, images where saved to the medical record ANESTHESIA: Medication Administered by: nurse Sedation Type: moderate sedation Sedation Supervision start time: 1311 Sedation Supervision end time: 1318 PROCEDURE DESCRIPTION / TECHNIQUE: The patient was seen and identified in the preoperative area. Risks, benefits, complications, and alternatives were discussed with the patient. The patient agreed to proceed with the procedure and signed the consent, vital signs were stable prior to the procedure. Patient was taken to the OR and time out was completed. The patient was placed in the prone position on procedure table and a pillow was placed under the abdomen to reduce lumbar lordosis. The lumbosacral area was prepped and draped in the usual sterile fashion. Vital signs were closely monitored during the procedure. Conscious sedation was used. Using oblique fluoroscopy, the chin of the "Rito dog" at the pedicle and the skin and deeper tissues just below was localized with 1% lidocaine. Subsequently, a 22-gauge 5-inch spinal needle was advanced under a tunneled view fluoroscopic guidance just underneath the chin of the "Rito dog". Under lateral fluoroscopy, the needle was then advanced to the posterior border interforaminal space. After negative aspiration of CSF and blood and with no paresthesias, 1 mL of Omnipaque-240 contrast dye was injected excellent epidurogram. Subsequently, a solution totalling 2ml of dexamethasone and PFNS was injected after negative aspiration (total of 10mg of dexamethasone was used). The needle was removed intact. COMPLICATIONS: None DISPOSITION: The patient was placed in a supine position and transferred to the recovery area in a stable condition for observation. There was no evidence of lower extremity motor or sensory deficit after the procedure. Patient was discharged from the recovery room after meeting discharge criteria. Home discharge instructions were given to the patient by the staff. The patient was reexamined prior to discharge. Follow up as directed.
[2023-01-14] MEDS ORDERED: LACTATED RINGERS 1,000 ML IV ONE (13:24)
[2023-01-14 13:27] VITALS: PULSE 65
[2023-01-14 13:46] VITALS: BP 118/54; RESP 16
--- NOTE | 2023-01-14 14:23 | FL ---
Intraoperative/procedural fluoroscopic services were provided. Total fluoroscopy time is 8.2 seconds with a total of 2 submitted images to PACS. Please see the operative/procedural note for further deta ils. DAP: [phone]
== END 2023-01-14 13:53 | disposition home or self-care (01) ==
LOC: ORPAIN 12:47
PROVIDERS: ATTEND Hospitalist
DX: M54.16 Radiculopathy, lumbar region (principal)
CPT/HCPCS: 64483; J2250; J1100; J3010; Q9966

== ENCOUNTER → 2023-02-06 | Outpatient (CLI) | payer OTHER ==
--- NOTE | 2023-02-06 15:00 | P.PAINPG ---
PQRS Measure Charge Sheet Comment: A 27 yr old male with a history of severe and chronic LBP secondary to lumbar DDD and spondylosis with facet arthropathy without myelopathy presents today for evaluation s/p R TFESI L5-S1. Pt states he experienced 0% relief s/p procedure. Pain level is provoked at 9/10 in intensity, constant, localized in the lumbar spine, sharp in character w shooting towards the RLE. Pain is provoked by bending, standing/ walking for periods of 30 min or more. Pain is alleviated with PT integrated w massage x 12 wks 1 yr ago, injections, medications, topicals, THC products, heat, ice, repositioning and rest. Interventional pain procedures completed include LESI, R TFESI L5-S1, R SI injection Patient is currently on Ibu Patient denies any side effects of the medication(s), denies excessive drowsiness or sleepiness, denies suicidal ideation and reports that the current pain medication is helping to control the pain and improve activities of daily living. Patient denies any motor or sensory deficits. Patient denies any fever or night sweats, denies any change in the bowel movements or urination. Physical Examination: -Constitutional: Cooperative. Not in acute distress . - Neurologic: Cranial nerve II to XII intact. No focal neurological deficits. - Psychatric: Alert & oriented x 3. Matching mood & appropriate affect. Judgment and insight intact. - Musculoskeletal: Cervical spine: Muscle bulk/ tone/ strength in the bilateral upper extremities normal Vertebral body tenderness to palpation over Spurling test positive Distraction test positive Facet loading test positive TTP Thoracic spine Muscle bulk / tone/ strength in the bilateral paraspinal muscles normal Vertebral body tender to palpation over Facet loading test positive TTP Lumbar spine: Motor bulk/ tone/ strength lower extremities , thigh and legs : 5/5 Deep tendon reflexes : Normal Knee Jerk. Normal Ankle Jerk . Vertebral body tenderness to palpation over L4, L5 Lumbar Facet Loading Test positive Straight Leg Raise: positive at 30 degrees right side/ left side Gaenslen's Test positive on R Sacral spine : Severe tenderness over the Sacroiliac joint: right side / left side Range of motion: Flexion of the lumbar spine <60 degrees Range of motion: Extension of the lumbar spine <20 degrees Gaenslen's Test positive right side / left side Baylee test: positive right side / left side Thigh Thrust Test positive right side / left side Sacral Thrust Test positive right side / left side Assessment and plan: Chronic LBP secondary to lumbar DDD, spondylosis with facet arthropathy without myelopathy Recommendation of follow up w Dr Clayton for additional treatment options. [address] lifting restrictions in place at this time. All questions answered. I have spent less than 30 minutes on patient care today. Dr Gutiérrez was available by phone for the evaluation of this patient. The time was used to review the medical records including relevant urine studies and Prescription history (MAPs), review of the available imaging, evaluation and examination of the patient, coordination of care with the medical staff and if applicable referring physicians, as well as creation of the medical record PQRS Narrative: Smoking Status Current every day smoker Hx Alcohol Use (MH) No Home Medications: Ambulatory Orders Ibuprofen 200 - 400 mg PO Q8H PRN 02/06/22 Cholecalciferol [Vitamin D3 (125 Mcg = 5000 Iu)] 125 mcg PO DAILY 11/28/22 Sertraline [Zoloft] 50 mg PO DAILY 11/28/22 polyethylene glycoL 3350 [Miralax] 17 gm PO DAILY 11/28/22 Controlled Substance Measures - Controlled Substance Measures Is patient prescribed a controlled substance at discharge?: No
[2023-02-06 15:05] VITALS: BP 139/60; PULSE 77; RESP 18; TEMP 98.1
== END ==
LOC: PNWHC3 14:14
PROVIDERS: ATTEND Specialist
DX: M51.36 Other intervertebral disc degeneration, lumbar region (principal); M47.816 Spondylosis without myelopathy or radiculopathy, lumbar region; G89.29 Other chronic pain; F17.200 Nicotine dependence, unspecified, uncomplicated
CPT/HCPCS: 99211

== ENCOUNTER → 2023-03-12 | Outpatient (CLI) | payer OTHER ==
--- NOTE | 2023-03-12 16:09 | MR ---
EXAMINATION TYPE: MR lumbar spine wo con DATE OF EXAM: 03/12/2023 COMPARISON: Prior MRI lumbar spine January 18, 2021 HISTORY: Low back pain, lumbar radiculopathy TECHNIQUE: Multiplanar, multisequence imaging of the lumbar spine is performed without IV contrast. FINDINGS: Sagittal images of the lumbar spine show vertebral body heights and alignment to remain sta ble and satisfactory. There is persistent disc desiccation with mild to moderate disc space narrowing L5-S1 level otherwise the intervertebral discs demonstrate normal heights and hydration. The conus medullaris remains normal in position and signal ending mid L1 level. The bone marrow signal intensi ty is within normal limits. Axial images show to T12-L1 through the L4-L5 levels to remain within normal limits. Axial images at L5-S1 level show improved disc herniation with focal left paracentral disc protrusion remaining present having foraminal extension on sagittal images 7 and 8. There is asymmetric moderat e left-sided inferior neural foraminal narrowing remaining present. Central component of disc herniat ion is improved with minimal effacement of anterior thecal sac on current study. Right-sided neural f oramina is patent. Paraspinal muscle bulk is maintained. IMPRESSION: Degenerative change L5-S1 level redemonstrated. Central portion of disc herniation improv ed from prior. The left eccentric portion is fairly stable.
== END | disposition home or self-care (01) ==
LOC: RADMRIMAIN 13:17
PROVIDERS: ATTEND Nurse Practitioner Family
DX: M47.26 Other spondylosis with radiculopathy, lumbar region (principal); M51.16 Intervertebral disc disorders with radiculopathy, lumbar region
CPT/HCPCS: 72148

== ENCOUNTER → 2023-03-24 | Outpatient (CLI) | payer OTHER ==
--- NOTE | 2023-03-25 08:05 | CT ---
EXAMINATION TYPE: CT lumbar spine wo con DATE OF EXAM: 03/24/2023 COMPARISON: HISTORY: Degenerative disc disease. Radiculopathy. RT leg numbness. CT DLP: 1236.8 mGycm CONTRAST: CT scan of the lumbar is performed , patient injected with mL of . TECHNIQUE: CT of the lumbar spine is performed on a spiral scan at 3 mm thick sections. Reconstructed images are performed in the coronal and sagittal planes. FINDINGS: T12-L1: No focal disc herniation or significant disc bulge is evident. No spinal canal stenosis or neural foraminal stenosis is present. L1-L2: No focal disc herniation. Very minimal disc bulge may have anterior thecal sac contact. No spi nal canal stenosis or neural foraminal stenosis is present L2-L3: Mild broad-based disc bulge is present in the anterior thecal sac contact. No AP spinal canal stenosis is present. Neural foramen are patent. L3-L4: Mild broad-based disc bulge is present anterior thecal sac contacting spinal canal stenosis is present. Mild left foraminal narrowing is present. L4-L5: Broad-based disc bulge has mild anterior thecal sac contact. No AP spinal canal stenosis is pr esent. There is moderate right and moderate to severe left foraminal stenosis. L5-S1: There is loss of disc height at this level. There is a moderately large left paracentral disc bulging. No spinal canal stenosis present. Severe left and moderate to severe right foraminal stenosi s is present. Vertebral alignment appears normal. IMPRESSION: 1. Large left paracentral disc bulging L5-S1 2. Loss of disc at L5-S1. 3. Foraminal stenosis discussed above. This may be severe on the left at L5-S1 and moderate to severe on left L4-5.
== END | disposition home or self-care (01) ==
LOC: RADCTMAIN 15:42
PROVIDERS: ATTEND Orthopaedic Surgery
DX: M51.16 Intervertebral disc disorders with radiculopathy, lumbar region (principal); M48.061 Spinal stenosis, lumbar region without neurogenic claudication
CPT/HCPCS: 72131

== ENCOUNTER → 2023-05-23 | Outpatient (CLI) | payer OTHER ==
[2023-05-23 16:52] LABS: BUN/Creat Ratio 15.56 Ratio (12.00-20.00); Carbon Dioxide 26.3 mmol/L (21.6-31.8); Chloride 104 mmol/L (96-109); Glucose 84 mg/dL (70-110); Potassium 4.5 mmol/L (3.5-5.5); Sodium 141 mmol/L (135-145)
[2023-05-23 22:08] LABS: INR <0.93 sec (0.93-1.11); Prothrombin Time 9.8 sec (9.9-11.9)
[2023-05-24 01:16] LABS: Basophils # (A) 0.07 X 10*3/uL (0.00-0.10); Basophils % (A) 0.8 %; Eosinophils # (A) 0.18 X 10*3/uL (0.04-0.35); Eosinophils % (A) 2.1 %; HCT 43.2 % (39.6-50.0); HGB 14.3 d/dL (13.0-17.0); Lymphocytes # (A) 2.42 X 10*3/uL (0.90-5.00); Lymphocytes % (A) 28.7 %; MCH 29.8 pg (27.0-32.0); MCHC 33.1 d/dL (32.0-37.0); Monocytes # (A) 0.67 X 10*3/uL (0.20-1.00); Monocytes % (A) 7.9 %; NRBC Per 100 WBC 0 X 10*3/uL (0.00-0.01); Neutrophils # (A) 5.08 X 10*3/uL (1.80-7.70); Neutrophils % (A) 60.4 %; Platelet Count 320 X 10*3/uL (140-440); RDW 11.9 % (11.5-14.5); WBC 8.43 X 10*3/uL (4.50-10.00)
== END | disposition home or self-care (01) ==
LOC: LABPAT 10:40
PROVIDERS: ATTEND Orthopaedic Surgery
DX: Z01.812 Encounter for preprocedural laboratory examination (principal); Z22.322 Carrier or suspected carrier of Methicillin resistant Staphylococcus aureus; M51.26 Other intervertebral disc displacement, lumbar region; I45.10 Unspecified right bundle-branch block; R00.1 Bradycardia, unspecified; R94.31 Abnormal electrocardiogram [ECG] [EKG]
CPT/HCPCS: 80048; 85025; 85610; 87070; 93005

== ENCOUNTER 2023-06-04 06:49 | Day surgery (SDC) | payer OTHER ==
[2023-05-26 13:06] VITALS: BMI 31.4
[2023-06-04] MEDS ORDERED: ONDANSETRON 4 MG/2 ML VIAL IVP ONE (07:18)
[2023-06-04] MEDS ORDERED: LIDOCAINE 1% (10MG/ML) FOR IV START INTRADERMA PRN (07:18)
[2023-06-04] MEDS ORDERED: droPERidol 5 MG/2 ML VIAL IVP ONE (07:18)
[2023-06-04] MEDS ORDERED: LACTATED RINGERS 1,000 ML IV SCH (07:18)
--- NOTE | 2023-06-04 07:36 | P.HPOR ---
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 Medications Reviewed: YES In our visit today Mr. Zacarias and I have had a chance to go over my understanding of the patient's current condition, the natural course history without intervention and various interventional options. Questions were invited and answered, and the patient wishes to proceed as outlined above. I will be sure to keep you updated afterMrLeona Zacarias returns here for further follow-up. Thank you again for your referral. Please do not hesitate to contact me if you have any further questions. Signed and authenticated by: Ryan Mejia [facility] [address], [address] [address] This message is confidential, intended only for the named recipient(s) and may contain information that is privileged or exempt from disclosure under applicable law. If you are not the intended recipient(s), you are notified that the dissemination, distribution or copying of this information is strictly prohibited. If you received this message in error, please notify the sender then delete this message. Patient verbalizes understanding of the information discussed. The above note was initiated by Josselyn Weaver, physician recording apartment assistant manager for Dr. Ryan Clayton. This note has been reviewed by Dr. Clayton, who has made his personal changes and impressions for this document. CC: [facility] # SIGNED BY Ryan Clayton (GOO)06/03/2023 02:49PM Past Medical History Past Medical History: GERD/Reflux, Musculoskeletal Disorder Additional Past Medical History / Comment(s): numbess in left leg and muscle spasms, constipation. History of Any Multi-Drug Resistant Organisms: None Reported Past Surgical History: Back Surgery Additional Past Surgical History / Comment(s): pain clinic procedures , nasal surgery at 1 year old. Past Anesthesia/Blood Transfusion Reactions: No Reported Reaction, Motion Sickness Additional Past Anesthesia/Blood Transfusion Reaction / Comment(s): . Past Psychological History: ADD/ADHD, Anxiety, Depression Smoking Status: Former smoker, Vaper Past Alcohol Use History: Rare Additional Past Alcohol Use History / Comment(s): Quit smoking March 2023, Smoked 1 PPD for 12 yrs., Now vapes Past Drug Use History: Marijuana Additional Drug Use History / Comment(s): Marijuana at bedtime. Aware no use 24 hrs prior to procedure. - Past Family History Father Family Medical History: Cancer, Deep Vein Thrombosis (DVT) Medications and Allergies Home Medications Medication Instructions Recorded Confirmed Type Ibuprofen 400 - 600 mg PO Q8H PRN 02/06/22 05/26/23 History Sertraline [Zoloft] 50 mg PO DAILY 11/28/22 05/26/23 History Antacid 1 tab PO DIRECTED PRN 05/26/23 History Meloxicam [Mobic] 15 mg PO DAILY 05/26/23 05/26/23 History Allergies Allergy/AdvReac Type Severity Reaction Status Date / Time No Known Allergies Allergy Verified 06/04/23 07:19 Physical Examination Osteopathic Statement: *. No significant issues noted on an osteopathic structural exam other than those noted in the History and Physical/Consult.
[2023-06-04] MEDS ORDERED: LIDOCAINE 1% (10MG/ML) FOR IV START INTRADERMA ONE (07:55)
[2023-06-04] MEDS ORDERED: SCOPOLAMINE 1 MG/72 HR PATCH TRANSDERM ONE (07:57)
[2023-06-04] MEDS ORDERED: GLYCOPYRROLATE 0.2 MG/ML 2 ML VIAL ONE (08:26)
[2023-06-04] MEDS ORDERED: fentaNYL (PF) 50 MCG/ML 2 ML AMP ONE (08:26)
[2023-06-04] MEDS ORDERED: LIDOCAINE 2% INJ 20 MG/ML (2 ML VIAL) ONE (08:26)
[2023-06-04] MEDS ORDERED: ROCURONIUM 10 MG/ML (5 ML VIAL) IV ONE (08:26)
[2023-06-04] MEDS ORDERED: TRANEXAMIC 1,000 MG/100ML-NACL PREMIX BAG ONE (08:26)
[2023-06-04] MEDS ORDERED: SUCCINYLCHOLINE CHLORIDE 200 MG/10 ML VIAL IV ONE (08:26)
[2023-06-04] MEDS ORDERED: NEOSTIGMINE 1 MG/ML 10 ML VIAL ONE (08:26)
[2023-06-04] MEDS ORDERED: MIDAZOLAM 2 MG/2 ML VIAL ONE (08:26)
[2023-06-04] MEDS ORDERED: PROPOFOL 10 MG/ML 20 ML VIAL IV ONE (08:26)
[2023-06-04] MEDS ORDERED: TRANEXAMIC 1,000 MG/100ML-NACL 1,000 MG in SALINE 1 100ML.BAG IVPB ONE ×2 (09:03→09:15)
[2023-06-04] MEDS ORDERED: GELATIN SPONGE,ABSORB (LARGE) 1 EACH SPONGE TOPICAL ONE (09:12)
[2023-06-04] MEDS ORDERED: THROMBIN (BOVINE) 5,000 UNIT VIAL TOPICAL ONE (09:12)
[2023-06-04] MEDS ORDERED: BUPIVACAINE (PF) 0.5% 30 ML VIAL SQ ONE (09:12)
[2023-06-04] MEDS ORDERED: LIDOCAINE 2% INJ 20 MG/ML SQ ONE (09:15)
[2023-06-04] MEDS ORDERED: LACTATED RINGERS 1,000 ML IV ONE (10:38)
[2023-06-04] MEDS ORDERED: methylPREDNISolone ACETATE 40 MG/ML 1 ML VIAL MISCELLANE ONE (10:45)
[2023-06-04] MEDS: MEPERIDINE 50 MG/ML SYRINGE IVP ONE ×2 (11:29→11:35)
--- NOTE | 2023-06-04 11:30 | XR ---
Intraoperative/procedural fluoroscopic services were provided for L5-S1 discectomy. Total fluoroscopy time is 9.1 seconds with a total of 4 submitted images to PACS. Total DAP 2.6654 Gycm2. Please see the operative note for further details.
[2023-06-04 11:35] VITALS: TEMP 96.8
[2023-06-04] MEDS: HYDROmorphone 0.5 MG/0.5 ML SYRINGE IVP PRN ×2 (11:48→12:02)
[2023-06-04 12:46] VITALS: PULSE 59; RESP 18
[2023-06-04 13:16] VITALS: BP 110/78
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
== END 2023-06-04 13:48 | disposition home or self-care (01) ==
LOC: OR 06:49
PROVIDERS: ATTEND Orthopaedic Surgery
DX: M51.17 Intervertebral disc disorders with radiculopathy, lumbosacral region (principal); K21.9 Gastro-esophageal reflux disease without esophagitis; F90.9 Attention-deficit hyperactivity disorder, unspecified type; F41.9 Anxiety disorder, unspecified; F32.A Depression, unspecified; Z87.891 Personal history of nicotine dependence; Z79.899 Other long term (current) drug therapy; Z79.1 Long term (current) use of non-steroidal anti-inflammatories (NSAID)
CPT/HCPCS: 86900; 86901; 86850; 72100; 63042; J2001 ×2; J2250; J0330; J1030; J2710; J2175; J0690; J2405; J3010; J2704; J1170; J0665